=== PATIENT | female | born 1940 | race Caucasian/White ===

== ENCOUNTER → 2017-03-06 | Outpatient (CLI) | payer MEDICARE, OTHER | END | disposition home or self-care (01) | LOC: GMAB 14:43 | PROVIDERS: ATTEND Family Medicine | DX: E03.9 Hypothyroidism, unspecified (principal) ==

== ENCOUNTER → 2017-03-12 | Outpatient (CLI) | payer MEDICARE, OTHER ==
--- NOTE | 2017-03-13 08:45 | MAM ---
History: Well woman exam. Date of exam: 03/12/2017 Services provided: Bilateral full field digital screening mammography. CAD, the images were reviewed with R2 computer aided detection. FINDINGS: Glandular tissue is scattered glandular pattern. Study is compared with 2014 exam. No dominant mass, architectural distortion or clustered microcalcification. IMPRESSION: Benign exam Recommendation: Routine annual mammography BIRAD CATEGORY: 2 BENIGN Electronically signed by: Kathy Moscoso MD 03/13/2017 8:44 AM CDT
== END ==
LOC: MAMMO 08:31
PROVIDERS: ATTEND Family Medicine
DX: Z12.31 Encounter for screening mammogram for malignant neoplasm of breast (principal)

== ENCOUNTER 2017-09-20 18:31 | Emergency (ER) | payer MEDICARE, OTHER ==
[2017-09-20] MEDS ORDERED: ONDANSETRON INJ 4 MG/2 ML VIAL IV ONE (18:34)
[2017-09-20] MEDS ORDERED: SODIUM CHLORIDE 0.9% 1000ML 1,000 ML IVS ONE (18:34)
--- NOTE | 2017-09-20 19:06 | ED.PDOC ---
History of Present Illness - General Chief Complaint: GI Problem Stated Complaint: nausea and vomiting x 3 days Time Seen by Provider: 09/20/17 18:34 Information Source: patient, RN notes reviewed, Vital Signs reviewed, family Additional Information: Pt reports Nausea and vomiting x 3 days. No fever. No previous similar episodes reported. Normal colonoscopy 1 year ago per report. Emesis is clear. Poor appetite x 3 days as well. Pt nontoxic. - History of Present Illness Timing/Duration: days - x 3 Associated Symptoms: nausea/vomiting Review of Systems - Review of Systems Constitutional: States: no symptoms reported EENTM: States: no symptoms reported Respiratory: States: no symptoms reported Cardiology: States: no symptoms reported Gastrointestinal/Abdominal: States: see HPI, nausea Genitourinary: States: no symptoms reported Musculoskeletal: States: no symptoms reported Skin: States: no symptoms reported Neurological: States: no symptoms reported Endocrine: States: no symptoms reported Hematologic/Lymphatic: States: no symptoms reported Past Medical History (General) - Patient Medical History Hx Seizures: No Hx Stroke: No Hx Dementia: No Hx Asthma: No Hx of COPD: No Hx Cardiac Disorders: No Hx Congestive Heart Failure: Yes Hx Pacemaker: No Hx Hypertension: Yes Hx Thyroid Disease: No Hx Diabetes: Yes Hx Gastroesophageal Reflux: No Hx Renal Disease: No Hx Cancer: No Hx of HIV: No Hx Hepatitis C: No Hx MRSA: No - Vaccination History Hx Tetanus, Diphtheria Vaccination: No - Social History Hx Tobacco Use: No Hx Alcohol Use: No Hx Substance Use: No Hx Substance Use Treatment: No Hx Depression: No Hx Physical Abuse: No Hx Emotional Abuse: No Hx Suspected Abuse: No Family Medical History - Family History Mother Living Status: Hx Family Congestive Heart Failure: Yes - 89 Physical Exam - Physical Exam General Appearance: Alert, Comfortable, No apparent distress - at rest, Obese Eyes, Ears, Nose, Throat Exam: PERRL/EOMI, normal ENT inspection, pharynx normal Neck: non-tender, full range of motion, supple Respiratory: no respiratory distress, no accessory muscle use Cardiovascular/Chest: tachycardia - initially, but went down to normal after fluids Gastrointestinal/Abdominal: non tender, soft Back Exam: normal inspection Extremity: normal range of motion, non-tender Neurologic: driller brake lining II-XII nml as tested, no motor/sensory deficits, alert, normal mood/affect, oriented x 3 Skin Exam: normal color Lymphatic: no adenopathy Progress - Progress Progress: 09/20/17 21:02 Pt's symptoms improved with IV fluids and IV ZOfran. Labs reviewed and essentially normal. Pt ok to be discharged home with Rx for PO Zofran ODT and strict return precautions. Soft abdomen. Pt nontoxic. - Results/Orders Results/Orders: 09/20/17 20:49 URINALYSIS Stat Laboratory Results - last 24 hr 09/20/17 09/20/17 18:50 18:50 WBC 8.7 RBC 5.05 Hgb 14.0 Hct 41.5 MCV 82.2 MCH 27.7 MCHC 33.7 RDW 15.1 H Plt Count 153 MPV 7.2 L Absolute Neuts (auto) 6.40 Absolute Lymphs (auto) 1.60 Absolute Monos (auto) 0.60 Absolute Eos (auto) 0.10 Absolute Basos (auto) 0.00 Neutrophils % 74.5 Lymphocytes % 17.9 L Monocytes % 6.4 Eosinophils % 0.8 L Basophils % 0.4 Sodium 136 Potassium 3.6 Chloride 99 L Carbon Dioxide 25 Anion Gap 15.6 BUN 24 H Creatinine 0.92 BUN/Creatinine Ratio 26.1 H Random Glucose 164 H Serum Osmolality 279.6 Calcium 9.6 Total Bilirubin 0.8 AST 22 ALT 17 Alkaline Phosphatase 69 Serum Total Protein 8.7 H Albumin 5.0 Globulin 3.7 H Albumin/Globulin Ratio 1.4 Departure - Departure Clinical Impression: Nausea & vomiting Qualifiers: Vomiting type: unspecified Vomiting Intractability: intractable Qualified Code( s): R11.2 - Nausea with vomiting, unspecified Time of Disposition: 21:15 Disposition: Discharge to Home or Self Care Condition: Fair Departure Forms: ED Discharge - Pt. Copy, Patient Portal Self Enrollment Instructions: Nausea and Vomiting-Adult Referrals: Andres Quinonez MD [Primary Care Provider] - 1-2 Weeks Prescriptions: Ondansetron [Ondansetron Odt] 4 mg PO TID PRN #15 tab PRN Reason: Nausea Home Medications: Ambulatory Orders Lisinopril 20 mg PO DAILY 09/20/17 Meloxicam [Mobic] 7.5 mg PO Q8HR 09/20/17 Ondansetron [Ondansetron Odt] 4 mg PO TID PRN #15 tab 10/21/17 Additional Instructions: Stay well hydrated. [place] diet - toast and crackers for now. Return to ER if condition worsens. Follow-up with primary care provider if symptoms persist in 2 to 3 days.
[2017-09-20] MEDS ORDERED: ONDANSETRON ODT 8 MG TAB SL ONE (20:58)
[2017-09-20 21:16] VITALS: BP 160/71; TEMP 98.2; O2SAT 95
== END 2017-09-20 21:16 | disposition home or self-care (01) ==
LOC: ER 18:31
DX: R11.2 Nausea with vomiting, unspecified (principal); I11.0 Hypertensive heart disease with heart failure; I50.9 Heart failure, unspecified; E11.9 Type 2 diabetes mellitus without complications
CPT/HCPCS: 36415; 80053; 81001; 85025; 87086; J2405; J7030

== ENCOUNTER → 2018-04-08 | Outpatient (CLI) | payer MEDICARE, OTHER ==
--- NOTE | 2018-04-10 15:09 | MAM ---
EXAM DESCRIPTION: 3D Screening BILATERAL : Digital Mammography. CLINICAL HISTORY: 78 years Female ANNUAL SCREENING . No complaints. No family history of breast cancer. Postmenopausal. Has taken HRT less than 5 years ago. COMPARISON: 2-D digital screening bilateral study 03/12/2017. Report from prior examination also reviewed. TECHNIQUE: Bilateral CC and MLO projection full-field images, 3-D tomosynthesis digital mammographic technique. Also bilateral synthesized CC/ MLO full-field images. CAD not utilized. FINDINGS: The breast parenchymal density pattern is: Almost entirely fatty. No skin thickening or nipple retraction bilateral axillary lymph nodes. Bilateral solitary microcalcifications. No focal, stellate mass or density, focal asymmetry , and no suspicious microcalcifications bilaterally. Stable mammograms compared to prior study, taking into account differences in mammographic technique IMPRESSION: BI-RADS CATEGORY: 2 - BENIGN FINDINGS. FOLLOW UP: Routine digital bilateral screening, one year interval from March 2018. Written communication explaining the IMPRESSION and follow-up, will be mailed to the patient and referring health care provider. According to the [employer], yearly mammograms are recommended starting at age 40 and continuing as long as a woman is in good health. Any breast change noted on a breast self-exam should be reported promptly to the patient's healthcare provider. Breast MRI is recommended for women with an approximately 20-25% or greater lifetime risk of breast cancer, including women with a strong family history of breast or ovarian cancer and women who have been treated for Hodgkin's disease. A negative mammographic report should not delay tissue diagnosis in patients with significant clinical history or physical findings. Extremely dense breast tissue limits the sensitivity of digital mammography. Electronically signed by: Dereck Esposito MD 04/10/2018 3:08 PM CDT
== END ==
LOC: MAMMO 14:10
PROVIDERS: ATTEND Family Medicine
DX: Z12.31 Encounter for screening mammogram for malignant neoplasm of breast (principal)

== ENCOUNTER → 2018-04-09 | Outpatient (CLI) | payer MEDICARE, OTHER | LOC: GMAB 11:18 | PROVIDERS: ATTEND Family Medicine | DX: E03.9 Hypothyroidism, unspecified (principal) ==

== ENCOUNTER → 2019-04-29 | Outpatient (CLI) | payer MEDICARE, OTHER ==
--- NOTE | 2019-04-30 13:33 | MAM ---
EXAM DESCRIPTION: 3D Screening BILATERAL : Digital Mammography. CLINICAL HISTORY: 79 years Female SCREENING . No complaints. No personal or family history of breast cancer. Childbirth. Postmenopausal. HRT 5 or more years ago. Lifetime risk of developing breast cancer (Tyrer-Cuzick model)(%): 1.7. COMPARISON: Bilateral screening digital breast tomosynthesis 04/08/2018. TECHNIQUE: Bilateral CC and MLO projection full-field images, digital tomosynthesis mammographic technique Bilateral digital 2-D full-field MLO images. CAD not available for tomosynthesis or 2-D images. FINDINGS: The breast parenchymal density pattern is: Almost entirely fatty. No skin thickening or nipple retraction. No new focal, stellate mass or density, focal asymmetry , and no suspicious microcalcifications Stable mammograms compared to prior study. IMPRESSION: Negative findings. ASSESSMENT: BI-RADS CATEGORY: 1 - NEGATIVE. FOLLOW UP: Routine digital bilateral screening, one year interval from date Written communication explaining the findings and follow-up, will be mailed to the patient and referring health care provider. According to the [employer], yearly mammograms are recommended starting at age 40 and continuing as long as a woman is in good health. Any breast change noted on a breast self-exam should be reported promptly to the patient's healthcare provider. Breast MRI is recommended for women with an approximately 20-25% or greater lifetime risk of breast cancer, including women with a strong family history of breast or ovarian cancer and women who have been treated for Hodgkin's disease. A negative mammographic report should not delay tissue diagnosis in patients with significant clinical history or physical findings. Extremely dense breast tissue limits the sensitivity of digital mammography. Electronically signed by: Dereck Esposito MD 04/30/2019 1:31 PM CDT
== END ==
LOC: RAD 15:05
PROVIDERS: ATTEND Family Medicine
DX: Z12.31 Encounter for screening mammogram for malignant neoplasm of breast (principal)

== ENCOUNTER 2019-05-28 19:36 | Emergency (ER) | payer MEDICARE, OTHER ==
[2019-05-28] MEDS ORDERED: AMIODARONE HCL 150 MG/3 ML VIAL IVPB ONE (19:49)
[2019-05-28] MEDS ORDERED: AMIODARONE HCL 900 MG/18 ML VIAL IVPB ONE ×2 (19:52→19:54)
[2019-05-28] MEDS ORDERED: DEXTROSE 5% (AVIVA) 500ML 500 ML IVPB ONE ×2 (19:53→19:54)
[2019-05-28] MEDS ORDERED: MIDAZOLAM INJ 5 MG/5 ML VIAL ONE (19:59)
[2019-05-28] MEDS ORDERED: SODIUM CHLORIDE 0.9% 50ML 50 ML ONE (19:59)
[2019-05-28] MEDS ORDERED: MIDAZOLAM INJ 25 MG in SODIUM CHLORIDE 0.9% 50ML 25 ML IVPB SCH (20:00)
[2019-05-28] MEDS ORDERED: AMIODARONE IV (LOAD) 150 MG in DEXTROSE 5% 100ML 100 ML IVPB ONE (20:08)
[2019-05-28] MEDS ORDERED: MIDAZOLAM INJ 5 MG/5 ML VIAL IV ONE ×2 (20:12→21:09)
[2019-05-28] MEDS ORDERED: CALCIUM GLUCONATE INJ 1 GM/10 ML VIAL IV ONE (20:21)
[2019-05-28] MEDS ORDERED: INSULIN, REG.(HUMAN) 100 U/ML VIAL IV ONE (20:21)
[2019-05-28] MEDS ORDERED: INSULIN, REG.(HUMAN) 100 U/ML VIAL ONE (20:22)
[2019-05-28] MEDS ORDERED: SODIUM BICARBONATE SYRINGE 50 MEQ/50 ML SYG IV ONE (20:22)
[2019-05-28] MEDS ORDERED: DEXTROSE 50% 25 GM/50 ML SYG IV ONE (20:25)
[2019-05-28] MEDS ORDERED: AMIODARONE IV (MAINT) 900 MG in DEXTROSE 5% (AVIVA) 500ML 500 ML IVPB SCH (20:30)
--- NOTE | 2019-05-28 21:20 | RAD ---
EXAM DESCRIPTION: Chest x-ray,1 View CLINICAL HISTORY: post intubation COMPARISON: May 18, 2019 FINDINGS: Blunted right costophrenic angle and increased opacity in the right lower lung could represent a combination of pleural fluid and atelectasis. There is a NG tube which courses subdiaphragmatically. The side-port ends at the gastroesophageal junction level. There is an endotracheal tube ending at the sternoclavicular junction approximately 5.2 cm above the level of the svitlana. There is atherosclerosis. Cardiac silhouette is enlarged which could be secondary to cardiomegaly. There is blunting of the left costophrenic angle which could represent pleural fluid. IMPRESSION: Blunted costophrenic angles, right greater than left, could be secondary to pleural fluid. Increased opacity at the right lower lung may represent atelectasis. Life support devices as described. Electronically signed by: Giovanni Lenz MD 05/28/2019 9:17 PM CDT
--- NOTE | 2019-05-28 21:29 | ED.PDOC ---
History of Present Illness - General Chief Complaint: Cardiovascular Problem Stated Complaint: Irregular pulse Time Seen by Provider: 05/28/19 21:25 Source: RN/MD, EMS, shelter records Exam Limitations: clinical condition - History of Present Illness Initial Comments: PT BROUGHT TO ED BY EMS FROM [facility] DUE TO PERIODS OF BRADYCARDIA IN THE 20S-30S FOLLOWED BY RETURN TO SINUS TACHYCARDIA AT APPROXIMATELY 100. PT WAS ALSO NOTED TO HAVE ALTERED MENTAL STATUS. PT WAS RECENTLY DISCHARGED TO [facility] FROM [facility] AFTER UNDERGOING A CABG. PT REQUIRES MY IMMEDIATE ATTENTION UPON ARRIVAL. HPI AND ROS LIMITED DUE TO PTS ACUITY. Timing/Duration: 1-3 hours Severity: severe Allergies/Adverse Reactions: Allergies NO KNOWN ALLERGY Allergy (Verified 09/20/17 18:43) Home Medications: Ambulatory Orders Lisinopril 20 mg PO DAILY 09/20/17 Aspirin [Aspirin Adult Low Dose] 81 mg PO 05/18/19 Nitrofurantoin Monohyd Macro [Nitrofurantoin Monohydrat] 100 mg PO BID 05/18/19 metFORMIN HCL [Glucophage] 500 mg PO DAILY 05/18/19 Review of Systems - Review of Systems Constitutional: States: see HPI EENTM: States: see HPI Respiratory: States: see HPI Cardiology: States: see HPI Gastrointestinal/Abdominal: States: see HPI Genitourinary: States: see HPI Musculoskeletal: States: see HPI Skin: States: see HPI Neurological: States: see HPI Endocrine: States: see HPI Past Medical History (General) - Patient Medical History Hx Seizures: No Hx Stroke: No Hx Dementia: No Hx Asthma: No Hx of COPD: No Hx Cardiac Disorders: Yes - CAD S/P CABG Hx Congestive Heart Failure: Yes Hx Pacemaker: No Hx Hypertension: Yes Hx Thyroid Disease: No Hx Diabetes: Yes Hx Gastroesophageal Reflux: No Hx Renal Disease: No Hx Cancer: No Hx of HIV: No Hx Hepatitis C: No Hx MRSA: No Surgical History: coronary bypass surgery - Vaccination History Hx Tetanus, Diphtheria Vaccination: No Hx Influenza Vaccination: Yes Hx Pneumococcal Vaccination: Yes - Social History Hx Tobacco Use: No Hx Chewing Tobacco Use: No Hx Alcohol Use: No Hx Substance Use: No Hx Substance Use Treatment: No Hx Depression: No Hx Physical Abuse: No Hx Emotional Abuse: No Hx Suspected Abuse: No - Activities of Daily Living Long Term/Assisted Living (if applicable):: [facility] - Female History Patient : No Family Medical History - Family History Mother Living Status: Hx Family Congestive Heart Failure: Yes - 89 Hx Family Hypertension: Yes - multiple family members Hx Family Diabetes: Yes - dad,brother Physical Exam - Physical Exam General Appearance: Lethargic, Obvious distress, Ill Appearing, Obese, Well Groomed, Well Hydrated, Other - AGONAL RESPIRATIONS Eye Exam: bilateral normal Ears, Nose, Throat: normal ENT inspection Neck: supple, normal inspection Respiratory: lungs clear, normal breath sounds, respiratory distress Cardiovascular/Chest: no murmur, tachycardia, other - PARTIALLY HEALED MIDLINE STERNOTOMY WOUND Gastrointestinal/Abdominal: soft, no organomegaly, no pulsatile mass Extremity: other - MOTTLING NOTED TO B/L LE Neurologic: disoriented x 3 - UNABLE TO ANSWER QUESTIONS Skin Exam: warm/dry, cyanosis - FINGERS , mottled Lymphatic: no adenopathy Progress - Results/Orders Results/Orders: Laboratory Tests 05/28/19 05/28/19 05/28/19 20:15 20:15 20:30 WBC 1.1 L* RBC 2.93 L Hgb 8.5 L Hct 26.0 L MCV 88.8 MCH 29.1 MCHC 32.7 L RDW 16.0 H Plt Count 119 L MPV 7.6 Absolute Neuts (auto) 0.80 L Absolute Lymphs (auto) 0.30 L Absolute Monos (auto) 0.00 L Absolute Eos (auto) 0.00 Absolute Basos (auto) 0.00 Neutrophils % 69.3 Neutrophils % (Manual) 46.0 Lymphocytes % 26.6 Lymphocytes % (Manual) 23.0 Monocytes % 2.2 Monocytes % (Manual) 1.0 Eosinophils % 1.0 Basophils % 0.9 Band Neutrophils 26.0 H* Metamyelocytes 4.0 H Nucleated RBCs 7.0 Platelet Estimate Decreased Polychromasia 2+ Anisocytosis 2+ D-Dimer, Quantitative 5.39 H* Sodium 132 L Potassium 6.3 H Chloride 99 L Carbon Dioxide 21 Anion Gap 18.3 H BUN 21 H Creatinine 0.63 BUN/Creatinine Ratio 33.3 H Random Glucose 150 H Serum Osmolality 270.4 L Calcium 8.0 L Magnesium 2.2 Creatine Kinase 76 CK-MB (CK-2) 1.0 CK-MB (CK-2) % Not Reportable Troponin I 0.08 H* B-Natriuretic Peptide 1210.0 H* - EKG/XRAY/CT EKG: Sinus, Tachy - @105BPM, WITH PACS, LAD, RBBB, nonspecific ST T wave Chg - ANTERIOR SEPTAL LEAD, Unchanged from - 05/18/19 XRAY: chest - ET AND OG TUBE PLACEMENT SATISFACTORY, RLL OPACITY Procedures - Central Line Left Femoral vein Central Line Lumen: triple Central Line Procedure Prep: sterile drapes applied, sterile dressing applied Anesthesia: Lidocaine cc's of anesthesia: 5 Complications: 1 FAILED ATTEMPT IN THE LEFT IJ Central Line Post Position: sutured, good blood return - Intubation Time of Intubation: 15:45 Intubation Method: orotracheal Tube Size (cm): 7.5 Medications: Succinylcholine Breath Sounds after Intubation: equal Post Intubation Xray: Yes - SATISFACTORY ET AND OG TUBE PLACEMENT Departure - Departure Clinical Impression: Bradycardia, Hyperkalemia, Altered mental status, Acute respiratory failure, History of coronary artery bypass graft, Neutropenia, Bandemia, Cardiovascular disease, Tachycardia, Paroxysmal ventricular tachycardia Time of Disposition: 21:15 Disposition: Transfer to Hospital Condition: Poor Departure Forms: ED Discharge - Pt. Copy, Patient Portal Self Enrollment Referrals: QAMAR LINTON MD [Primary Care Provider] - 1-2 Weeks Home Medications: Ambulatory Orders Lisinopril 20 mg PO DAILY 09/20/17 Aspirin [Aspirin Adult Low Dose] 81 mg PO 05/18/19 Nitrofurantoin Monohyd Macro [Nitrofurantoin Monohydrat] 100 mg PO BID 05/18/19 metFORMIN HCL [Glucophage] 500 mg PO DAILY 05/18/19 Critical Care Note - Critical Care Note Total Time (mins): 50 Comments: CRITICAL EVENT: BRADYCARDIA, AMS, RESPIRATORY FAILURE CRITICAL FINDINGS: WBC 1.1, K 6.3, TROP 0.08, PAROXYSMAL VTAC CRITICAL ACTIONS: RSI, IV AMIODARONE, IV CALCIUM GLUCONATE, IV SODIUM BICARB, IV INSULIN, IV D50. Transfer to Outside Facility - Transfer Information Accepting Provider:: DR. MIRANDA Accepting Facility: [facility] Reason for Transfer: ICU
[2019-05-28] MEDS ORDERED: VECURONIUM BROMIDE 10 MG VIAL IV ONE (23:00)
[2019-05-28] MEDS ORDERED: ETOMIDATE INJECTION 2 MG/ML 20ML VIAL IV ONE (23:00)
[2019-05-29 03:18] VITALS: O2SAT 94
[2019-05-29 03:19] VITALS: BP 122/60; TEMP 100
== END 2019-05-28 21:25 | disposition short-term general hospital (02) ==
LOC: ER 19:36
DX: J96.00 Acute respiratory failure, unspecified whether with hypoxia or hypercapnia (principal); R00.1 Bradycardia, unspecified; R41.82 Altered mental status, unspecified; E87.5 Hyperkalemia; D70.9 Neutropenia, unspecified; D72.825 Bandemia; I47.2 Ventricular tachycardia; I25.10 Atherosclerotic heart disease of native coronary artery without angina pectoris; I50.9 Heart failure, unspecified; I11.0 Hypertensive heart disease with heart failure; E11.9 Type 2 diabetes mellitus without complications; Z79.82 Long term (current) use of aspirin; Z79.899 Other long term (current) drug therapy; Z95.1 Presence of aortocoronary bypass graft; Z79.84 Long term (current) use of oral hypoglycemic drugs
CPT/HCPCS: 31500; 36415; 36600; 71045; 80048; 82550; 82553; 82803; 82805; 83880; 84484; 85025; 85379; 85610; 85730; 93005; 94002; 94770; A4216; J0282; J2250; J7060; J7799

== ENCOUNTER 2019-06-09 15:18 | Emergency (ER) | payer MEDICARE, OTHER ==
--- NOTE | 2019-06-09 16:02 | ED.PDOC ---
History of Present Illness - General Chief Complaint: Respiratory Problem Time Seen by Provider: 06/09/19 15:52 Source: patient - History of Present Illness Initial Comments: PT SENT FROM [place] FOR LOW O2 SATS. JUST ARRIVED YESTERDAY. HAD CABG IN [place], 05/28. [place] STATES HAS REQUIRED VENTURI MASK ALL DAY LONG TO MAINTAIN SATS IN THE LOW 90'S. SHE IS VERY DIFFICULT TO GET HX FROM. Allergies/Adverse Reactions: Allergies NO KNOWN ALLERGY Allergy (Verified 09/20/17 18:43) Home Medications: Ambulatory Orders Lisinopril 20 mg PO DAILY 09/20/17 Aspirin [Aspirin Adult Low Dose] 81 mg PO 05/18/19 Nitrofurantoin Monohyd Macro [Nitrofurantoin Monohydrat] 100 mg PO BID 05/18/19 metFORMIN HCL [Glucophage] 500 mg PO DAILY 05/18/19 Review of Systems - Review of Systems Constitutional: Denies: chills, fever EENTM: States: no symptoms reported Respiratory: States: short of breath. Denies: cough Cardiology: Denies: chest pain Gastrointestinal/Abdominal: Denies: nausea, vomiting Musculoskeletal: States: no symptoms reported Skin: States: other - BRUISING TO CHEST WALL Neurological: States: no symptoms reported Endocrine: States: no symptoms reported Hematologic/Lymphatic: States: no symptoms reported Past Medical History (General) - Patient Medical History Hx Seizures: No Hx Stroke: No Hx Dementia: No Hx Asthma: No Hx of COPD: No Hx Cardiac Disorders: Yes - CAD S/P CABG Hx Congestive Heart Failure: Yes Hx Pacemaker: No Hx Hypertension: Yes Hx Thyroid Disease: No Hx Diabetes: Yes Hx Gastroesophageal Reflux: No Hx Renal Disease: No Hx Cancer: No Hx of HIV: No Hx Hepatitis C: No Hx MRSA: No - Vaccination History Hx Tetanus, Diphtheria Vaccination: No Hx Influenza Vaccination: Yes Hx Pneumococcal Vaccination: Yes - Social History Hx Tobacco Use: No Hx Chewing Tobacco Use: No Hx Alcohol Use: No Hx Substance Use: No Hx Substance Use Treatment: No Hx Depression: No Hx Physical Abuse: No Hx Emotional Abuse: No Hx Suspected Abuse: No - Female History Patient : No Family Medical History - Family History Mother Living Status: Hx Family Congestive Heart Failure: Yes - 89 Hx Family Hypertension: Yes - multiple family members Hx Family Diabetes: Yes - dad,brother Physical Exam - Physical Exam General Appearance: Alert, No apparent distress Eye Exam: bilateral normal Ears, Nose, Throat: normal ENT inspection, normal pharynx Neck: non-tender, full range of motion, supple Respiratory: other - ANU DIFFUSE RALES THROUGHOUT. NO WHEEZES, NO RHONCHI Cardiovascular/Chest: regular rate, rhythm, no murmur Gastrointestinal/Abdominal: normal bowel sounds, non tender, soft, no organomegaly Back Exam: normal inspection, no CVA tenderness Extremity: normal range of motion, non-tender, normal inspection, no pedal edema, no calf tenderness Neurologic: alert, normal mood/affect Skin Exam: other - MEDIAN STERNOTOMY INCISION IS HEALING WELL. DIFFUSE ECCHYMOSIS ANU LOWER CHEST WALL. NO ERYTHEMA, NO INDURATIONS. Lymphatic: no adenopathy Progress - Progress Progress: 06/09/19 17:27 D/W PT, IS OK WITH FURTHER TREATMENT IF NEEDED. 06/09/19 17:52 D/W CHUCK REDDING, HOSPITALIST, AND LUIS EDUARDO. ACCEPTS PT IN TRANSFER. DR. REDDING REQUESTS MERRUM. WILL GET BLOOD CULTURES PRIOR TO ABX ADMINISTRATION. PT UNDERSTANDS TREATMENT PLAN AND AGREES. 06/09/19 19:13 PT STABLE ON 3-4L PER N/C. SATS 94%. - EKG/XRAY/CT EKG: Sinus - NL AXIS, NL INTERVALS, , nonspecific ST T wave Chg - NAIP, NO CHANGE FROM 05/18/19 XRAY: chest - LLL INFILTRATE, R LOWER LOBE LOCULATED FLUID COLLECTION. Departure - Departure Clinical Impression: Loculated pleural effusion Pneumonia Qualifiers: Pneumonia type: due to unspecified organism Laterality: left Lung location: lower lobe of lung Qualified Code(s): J18.1 - Lobar pneumonia, unspecified or ganism CAD (coronary artery disease) Qualifiers: Coronary Disease-Associated Artery/Lesion type: [place] artery [place] vs. transplanted heart: [place] heart Associated angina: without angina Qualified Code(s): I25.10 - Atherosclerotic heart disease of [place] coronary artery without angina pectoris CHF (congestive heart failure) Qualifiers: Heart failure type: diastolic Heart failure chronicity: acute Qualified Code(s): I50.31 - Acute diastolic (congestive) heart failure Time of Disposition: 19:20 Disposition: Transfer to Hospital Condition: Fair Departure Forms: ED Discharge - Pt. Copy, Patient Portal Self Enrollment Referrals: QAMAR LINTON MD [Primary Care Provider] - 1-2 Weeks Home Medications: Ambulatory Orders Lisinopril 20 mg PO DAILY 09/20/17 Aspirin [Aspirin Adult Low Dose] 81 mg PO 05/18/19 Nitrofurantoin Monohyd Macro [Nitrofurantoin Monohydrat] 100 mg PO BID 05/18/19 metFORMIN HCL [Glucophage] 500 mg PO DAILY 05/18/19 Transfer to Outside Facility - Transfer Information Accepting Provider:: HOSPITALIST Accepting Facility: [facility] Reason for Transfer: required specialist not available
--- NOTE | 2019-06-09 16:17 | RAD ---
EXAM DESCRIPTION: Chest,1 View CLINICAL HISTORY: 79 years Female, HYPOXEMIA COMPARISON: Previous study May 28, 2019 TECHNIQUE: AP portable chest. FINDINGS: Heart size is large with prominent central pulmonary vascularity. Consolidation in the left lower lobe behind the heart with partial volume loss or infiltrate in the right lung base around partly loculated pleural fluid. Masslike density in the right mid and lower lung zone thought to be loculated pleural fluid in the major fissure. Correlate with chest CT findings. Calcified granuloma in the left upper lobe. No pneumothorax. Bones are unremarkable. IMPRESSION: Large cardiac silhouette AP cardiomegaly or pericardial effusion. Correlate with echocardiographic findings. Partial volume loss or infiltrate in the lung bases with partly loculated right pleural effusion. See above. Electronically signed by: Jesse Norris MD 06/09/2019 4:14 PM CDT
[2019-06-09] MEDS ORDERED: MEROPENEM 1 GM in SODIUM CHL 0.9% 50ML MIN-BAG+ 50 ML IVPB ONE (17:51)
[2019-06-09] MEDS ORDERED: SODIUM CHLORIDE 0.9% 50ML 50 ML ONE (18:15)
[2019-06-09] MEDS ORDERED: MEROPENEM 500 MG VIAL IVPB ONE (18:16)
[2019-06-09 19:26] VITALS: BP 116/52; TEMP 98.6; O2SAT 94
== END 2019-06-09 19:30 | disposition short-term general hospital (02) ==
LOC: ER 15:18
DX: J18.1 Lobar pneumonia, unspecified organism (principal); I25.10 Atherosclerotic heart disease of native coronary artery without angina pectoris; I50.31 Acute diastolic (congestive) heart failure; E11.9 Type 2 diabetes mellitus without complications; I11.0 Hypertensive heart disease with heart failure; Z95.1 Presence of aortocoronary bypass graft; Z79.84 Long term (current) use of oral hypoglycemic drugs; Z79.82 Long term (current) use of aspirin; Z79.899 Other long term (current) drug therapy
CPT/HCPCS: 36415; 71045; 80053; 83880; 84484; 85025; 85610; 85730; 87040; 93005; A4216; J2185

== ENCOUNTER 2019-08-24 12:11 | Emergency (ER) | payer MEDICARE, OTHER ==
--- NOTE | 2019-08-24 18:52 | ED.PDOC ---
History of Present Illness - General Chief Complaint: General Stated Complaint: left foot pain Time Seen by Provider: 08/24/19 13:26 - History of Present Illness Initial Comments: 79 yo F daughter 2 granddaughters great grandson and his girlfriend with son in law who happens to be a patient in department at bedside presents c/o LLE pain foot drop and color change turning 'black' x 1 day. Pt.PMH CABG tripple bypass with graft from LLE. Pt. denies fever chills nausea vomiting diarrhea chest pain sob diaphoresis. No change in diet rest bowel or bladder. Denies drinking or smoking pt of Dr. Lawler admits FH HTN DM. No other c/o today. Allergies/Adverse Reactions: Allergies NO KNOWN ALLERGY Allergy (Verified 09/20/17 18:43) Home Medications: Ambulatory Orders Lisinopril 20 mg PO DAILY 09/20/17 Aspirin [Aspirin Adult Low Dose] 81 mg PO 05/18/19 Nitrofurantoin Monohyd Macro [Nitrofurantoin Monohydrat] 100 mg PO BID 05/18/19 metFORMIN HCL [Glucophage] 500 mg PO DAILY 05/18/19 Review of Systems - Review of Systems Constitutional: States: no symptoms reported EENTM: States: no symptoms reported Respiratory: States: no symptoms reported Cardiology: States: no symptoms reported Gastrointestinal/Abdominal: States: no symptoms reported Genitourinary: States: no symptoms reported Musculoskeletal: States: no symptoms reported Neurological: States: no symptoms reported Endocrine: States: no symptoms reported Hematologic/Lymphatic: States: no symptoms reported All other Systems: Reviewed and Negative Past Medical History (General) - Patient Medical History Hx Seizures: No Hx Stroke: No Hx Dementia: No Hx Asthma: No Hx of COPD: No Hx Cardiac Disorders: Yes - CAD S/P CABG Hx Congestive Heart Failure: Yes Hx Pacemaker: No Hx Hypertension: Yes Hx Thyroid Disease: No Hx Diabetes: Yes Hx Gastroesophageal Reflux: No Hx Renal Disease: No Hx Cancer: No Hx of HIV: No Hx Hepatitis C: No Hx MRSA: No Surgical History: coronary bypass surgery, Hysterectomy - Vaccination History Hx Tetanus, Diphtheria Vaccination: No Hx Influenza Vaccination: Yes Hx Pneumococcal Vaccination: Yes - Social History Hx Tobacco Use: No Hx Chewing Tobacco Use: No Hx Alcohol Use: No Hx Substance Use: No Hx Substance Use Treatment: No Hx Depression: No Hx Physical Abuse: No Hx Emotional Abuse: No Hx Suspected Abuse: No - Female History Patient : No Family Medical History - Family History Mother Living Status: Hx Family Congestive Heart Failure: Yes - 89 Hx Family Hypertension: Yes - multiple family members Hx Family Diabetes: Yes - dad,brother Physical Exam - Physical Exam General Appearance: No apparent distress Eye Exam: bilateral normal Ears, Nose, Throat: normal ENT inspection Neck: non-tender, full range of motion Respiratory: normal breath sounds Cardiovascular/Chest: regular rate, rhythm Gastrointestinal/Abdominal: normal bowel sounds, non tender Back Exam: normal inspection Extremity: normal range of motion, non-tender Neurologic: other - L foot drop Skin Exam: other - ecchymosis and edema over left foot Comments: L foot swollen and edematous compared to right has ecchymosis and 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 felt at dorsalis pedis bilaterally but not as prominent as right foot when palpating over left forefoot Progress - Progress Progress: 08/24/19 18:51 Laboratory Tests 08/24/19 08/24/19 08/24/19 14:50 14:50 14:50 WBC 7.8 RBC 4.52 Hgb 12.7 Hct 38.3 MCV 84.7 MCH 28.1 MCHC 33.2 RDW 15.2 H Plt Count 155 MPV 7.6 Absolute Neuts (auto) 4.90 Absolute Lymphs (auto) 2.20 Absolute Monos (auto) 0.60 Absolute Eos (auto) 0.10 Absolute Basos (auto) 0.10 Neutrophils % 62.2 Lymphocytes % 28.9 Monocytes % 7.3 Eosinophils % 0.9 L Basophils % 0.7 Sodium 132 L Potassium 3.8 Chloride 94 L Carbon Dioxide 25 Anion Gap 16.8 BUN 23 H Creatinine 0.86 BUN/Creatinine Ratio 26.7 H Random Glucose 88 Serum Osmolality 267.6 L Lactic Acid 1.6 Calcium 9.5 Total Bilirubin 0.7 AST 16 ALT 11 Alkaline Phosphatase 53 Serum Total Protein 7.2 Albumin 3.9 Globulin 3.3 Albumin/Globulin Ratio 1.2 08/24/19 19:17 A/P-Foot Pain Left, Edema 1.iv cbc cmp transfer to [facility] for US and CTA with runoff and evaluation by vascular Spoke to Dr. Bassett of Vascular Surgery who agrees with plan and wishes patient to be sent ER to ER Dr. Lenny Mcguire accepts 1911 Departure - Departure Clinical Impression: Foot pain, left, H/O vascular surgery Edema Qualifiers: Edema type: localized Qualified Code(s): R60.0 - Localized edema Time of Disposition: 19:20 Disposition: Transfer to Hospital Condition: Fair Departure Forms: ED Discharge - Pt. Copy, Patient Portal Self Enrollment Referrals: QAMAR LAWLER MD [Primary Care Provider] - 1-2 Weeks Home Medications: Ambulatory Orders Lisinopril 20 mg PO DAILY 09/20/17 Aspirin [Aspirin Adult Low Dose] 81 mg PO 05/18/19 Nitrofurantoin Monohyd Macro [Nitrofurantoin Monohydrat] 100 mg PO BID 05/18/19 metFORMIN HCL [Glucophage] 500 mg PO DAILY 05/18/19 Transfer to Outside Facility - Transfer Information Accepting Provider:: Dr. Mcguire 1911 Accepting Facility: [facility] Reason for Transfer: specialized care not available
[2019-08-24 19:29] VITALS: TEMP 98.7
[2019-08-24 20:09] VITALS: BP 160/87; O2SAT 95
== END 2019-08-24 20:45 | disposition short-term general hospital (02) ==
LOC: ER 12:11
DX: S90.32XA Contusion of left foot, initial encounter (principal); R60.0 Localized edema; M21.372 Foot drop, left foot; I25.10 Atherosclerotic heart disease of native coronary artery without angina pectoris; I50.9 Heart failure, unspecified; I11.0 Hypertensive heart disease with heart failure; E11.9 Type 2 diabetes mellitus without complications; Z98.890 Other specified postprocedural states; Z95.1 Presence of aortocoronary bypass graft; Z79.84 Long term (current) use of oral hypoglycemic drugs; Z79.82 Long term (current) use of aspirin; Z79.899 Other long term (current) drug therapy; X58.XXXA Exposure to other specified factors, initial encounter; Y92.9 Unspecified place or not applicable

== ENCOUNTER 2019-09-08 17:36 | Inpatient (IN) | payer MEDICARE, OTHER ==
--- NOTE | 2019-09-08 19:03 | CT ---
EXAM: CT Left Lower Extremity Without Intravenous Contrast CLINICAL HISTORY: ct foot for dorsal and lateral erythema, pain TECHNIQUE: Axial computed tomography images of the left lower extremity without intravenous contrast. Sagittal and coronal reformatted images were created and reviewed. This CT exam was performed using one or more of the following dose reduction techniques: automated exposure control, adjustment of the mA and/or kV according to patient size, and/or use of iterative reconstruction technique. COMPARISON: No relevant prior studies available. FINDINGS: Limitations: None. Bones/joints: Unremarkable. No acute fracture. No dislocation. Soft tissues: Edema present diffusely most notable dorsally and laterally. There is no organized/drainable collection. No soft tissue gas. IMPRESSION: There is soft tissue swelling without acute bony abnormality. Electronically signed by: Shalini Montenegro MD 09/08/2019 7:01 PM CDT
[2019-09-08] MEDS ORDERED: VANCOMYCIN HCL INJ 1,000 MG, VANCOMYCIN HCL INJ 250 MG in SODIUM CHLORIDE 0.9% 250ML 25... IVPB ONE (19:15)
[2019-09-08] MEDS ORDERED: VANCOMYCIN HCL INJ 500 MG VIAL ONE (19:17)
[2019-09-08] MEDS ORDERED: VANCOMYCIN HCL INJ 1,000 MG VIAL IVPB ONE (19:17)
[2019-09-08] MEDS ORDERED: SODIUM CHLORIDE 0.9% 250ML 250 ML ONE (19:18)
[2019-09-08] MEDS ORDERED: SODIUM CHLORIDE 0.9% 1000ML 500 ML IVS ONE (19:19)
--- NOTE | 2019-09-08 19:27 | ED.PDOC ---
History of Present Illness - General Chief Complaint: Lower Extremity Injury Stated Complaint: left foot discoloration, swelling Time Seen by Provider: 09/08/19 17:53 Source: patient, family Exam Limitations: no limitations - History of Present Illness Initial Comments: the patient is an 79-year-old female presenting to the emergency room after being sent over from the clinic by Dr. Quinonez. The patient has what appears to be a cellulitis of the dorsal aspect of the left foot that has been present for approximately 3 weeks. She has apparently completed almost 2 weeks of Bactrim and Keflex without complete resolution. No fever. No erythema extending up the leg. No known trauma. There is obvious swelling and some erythema. There is also what appears to be a little bit of bruising around the edges. No IV has been put at the site. The patient also has a wound VAC to the center of the chest where her wound dehisced from a CABG back in May. This was just changed out today and the site actually looks good. No fever. No evidence of sepsis. The patient is pleasant and cooperative. the patient actually went to [facility] a short time ago for this and had a vascular ultrasound done showing decent perfusion. She does have a palpable dorsalis pedis pulse in that distribution. Timing/Duration: other - almost 3 weeks Severity: moderate Improving Factors: nothing Worsening Factors: movement Associated Symptoms: denies symptoms Allergies/Adverse Reactions: Allergies NO KNOWN ALLERGY Allergy (Verified 09/20/17 18:43) Home Medications: Ambulatory Orders Lisinopril 20 mg PO DAILY 09/20/17 Aspirin [Aspirin Adult Low Dose] 81 mg PO 05/18/19 Nitrofurantoin Monohyd Macro [Nitrofurantoin Monohydrat] 100 mg PO BID 05/18/19 metFORMIN HCL [Glucophage] 500 mg PO DAILY 05/18/19 Review of Systems - Review of Systems Constitutional: States: no symptoms reported EENTM: States: no symptoms reported Respiratory: States: no symptoms reported Cardiology: States: no symptoms reported Gastrointestinal/Abdominal: States: no symptoms reported Genitourinary: States: no symptoms reported Musculoskeletal: States: see HPI Skin: States: see HPI Neurological: States: no symptoms reported Endocrine: States: no symptoms reported All other Systems: No Change from Baseline Past Medical History (General) - Patient Medical History Hx Seizures: No Hx Stroke: No Hx Dementia: No Hx Asthma: No Hx of COPD: No Hx Cardiac Disorders: Yes - CAD S/P CABG Hx Congestive Heart Failure: Yes Hx Pacemaker: No Hx Hypertension: Yes Hx Thyroid Disease: No Hx Diabetes: Yes Hx Gastroesophageal Reflux: No Hx Renal Disease: No Hx Cancer: No Hx of HIV: No Hx Hepatitis C: No Hx MRSA: No - Vaccination History Hx Tetanus, Diphtheria Vaccination: No Hx Influenza Vaccination: Yes Hx Pneumococcal Vaccination: Yes - Social History Hx Tobacco Use: No Hx Chewing Tobacco Use: No Hx Alcohol Use: No Hx Substance Use: No Hx Substance Use Treatment: No Hx Depression: No Hx Physical Abuse: No Hx Emotional Abuse: No Hx Suspected Abuse: No - Female History Patient : No Family Medical History - Family History Mother Living Status: Hx Family Congestive Heart Failure: Yes - 89 Hx Family Hypertension: Yes - multiple family members Hx Family Diabetes: Yes - dad,brother Physical Exam - Physical Exam General Appearance: Alert, Comfortable, No apparent distress Eye Exam: bilateral normal Ears, Nose, Throat: hearing grossly normal, normal pharynx Neck: non-tender, supple Respiratory: lungs clear, normal breath sounds, no respiratory distress, no accessory muscle use Cardiovascular/Chest: normal peripheral pulses, no edema, other - regular rate. wound VAC site appears appropriate and without obvious infection. Peripheral Pulses: radial,right: 2+, radial,left: 2+, dorsalis pedis,right: 1+, dorsalis pedis,left: 1+ Gastrointestinal/Abdominal: non tender, soft Rectal Exam: deferred Extremity: normal range of motion, no calf tenderness, normal capillary refill, other - she does have tenderness over the dorsal aspect where the erythema and swelling is. No definite bony crepitus. 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 One pass was made without any success. Estimated blood loss was none. Assessment and plan: The patient is an 79-year-old female presenting to the emergency room from the primary care clinic due to cellulitis of the left foot that has failed to resolve with Bactrim and Keflex. Laboratory work and CT scan are reassuring. Given the resistance to the current antibiotics the patient is going to be started on vancomycin here tonight. She'll be placed under observation to make sure she tolerates this well. This can be continued as an outpatient with home health and followed with home health. The patient is in good spirits and vital signs are stable. Admitted for observation. A blood culture was done today. - Results/Orders Results/Orders: CT scan of the left foot shows no evidence of osteomyelitis. It does show the swelling to the dorsal aspect. No obvious fracture. Laboratory Tests 09/08/19 09/08/19 09/08/19 18:05 18:05 18:05 WBC 7.8 RBC 4.48 Hgb 12.8 Hct 38.3 MCV 85.6 MCH 28.6 MCHC 33.4 RDW 16.1 H Plt Count 173 MPV 7.3 L Absolute Neuts (auto) 5.20 Absolute Lymphs (auto) 2.00 Absolute Monos (auto) 0.50 Absolute Eos (auto) 0.10 Absolute Basos (auto) 0.00 Neutrophils % 66.9 Lymphocytes % 26.0 Monocytes % 5.9 Eosinophils % 0.7 L Basophils % 0.5 PT 9.8 INR 0.98 PTT (SP) 24.9 Sodium 133 L Potassium 4.6 Chloride 98 L Carbon Dioxide 20 L Anion Gap 19.6 H BUN 36 H Creatinine 1.12 BUN/Creatinine Ratio 32.1 H Random Glucose 113 H Serum Osmolality 275.5 Uric Acid Calcium 9.4 Total Bilirubin 0.4 AST 22 ALT 20 Alkaline Phosphatase 61 C-Reactive Protein Serum Total Protein 7.8 Albumin 4.1 Globulin 3.7 H Albumin/Globulin Ratio 1.1 09/08/19 18:05 WBC RBC Hgb Hct MCV MCH MCHC RDW Plt Count MPV Absolute Neuts (auto) Absolute Lymphs (auto) Absolute Monos (auto) Absolute Eos (auto) Absolute Basos (auto) Neutrophils % Lymphocytes % Monocytes % Eosinophils % Basophils % PT INR PTT (SP) Sodium Potassium Chloride Carbon Dioxide Anion Gap BUN Creatinine BUN/Creatinine Ratio Random Glucose Serum Osmolality Uric Acid 6.1 Calcium Total Bilirubin AST ALT Alkaline Phosphatase C-Reactive Protein 1.0 Serum Total Protein Albumin Globulin Albumin/Globulin Ratio Departure - Departure Clinical Impression: Cellulitis of foot without toes Disposition: Admit Patient Departure Forms: ED Discharge - Pt. Copy, Patient Portal Self Enrollment Referrals: QAMAR LINTON MD [Primary Care Provider] - 1-2 Weeks Home Medications: Ambulatory Orders Lisinopril 20 mg PO DAILY 09/20/17 Aspirin [Aspirin Adult Low Dose] 81 mg PO 05/18/19 Nitrofurantoin Monohyd Macro [Nitrofurantoin Monohydrat] 100 mg PO BID 05/18/19 metFORMIN HCL [Glucophage] 500 mg PO DAILY 05/18/19 Decision To Admit - Decistion To Admit Decision to Admit Reason: Medical Nature Decision to Admit Date: 09/08/19 Decision to Admit Time: 19:31
--- NOTE | 2019-09-08 22:10 | HP ---
SUPERVISING PHYSICIAN: Tom Davis MD CHIEF COMPLAINT: Left foot swelling. HISTORY OF PRESENT ILLNESS: This is an 79-year-old female who came in the Emergency Room with left foot swelling and erythema. She went to see her primary care physician who noted that she had some increased swelling and redness to the foot. Apparently she had a coronary artery bypass graft at [facility] several months ago. Since that time, she has had intermittent swelling of the foot, however, the swelling did not have discoloration until August 22. She ended up going to [facility] and was sent to the Emergency Room at [facility]. She was placed in the CDU there where her surgeon, Dr. Bassett, was contacted. She ended up having a Doppler which did not show any blood clots, but did incidentally find a left inguinal pseudoaneurysm. She was placed on antibiotics by mouth which included Bactrim. She finished those antibiotics a couple of days ago and was seen by her primary care physician who noted that the redness and swelling really has not gotten any better. Additionally, she has had a dehiscence of her sternal wound that required a wound VAC. On examination today, the patient is alert and oriented. Her labs are unremarkable. She does not complain of any significant pain at this time. PAST MEDICAL HISTORY: 1. Hypertension. 2. Diabetes mellitus. 3. Congestive heart failure. 4. Urinary tract infections. 5. Hard of hearing. PAST SURGICAL HISTORY: 1. Percutaneous transluminal coronary angioplasties. 2. Cardiac catheterizations. 3. Coronary artery bypass graft. 4. Cholecystectomy. 5. Hysterectomy. MEDICATIONS: 1. Aspirin 81 mg daily. 2. Amlodipine 5 mg daily. 3. Citalopram 20 mg daily. 4. Hydrochlorothiazide 12.5 mg daily. 5. Lisinopril 20 mg daily. 6. Metformin 500 mg every morning. 7. Metoprolol 25 mg b.i.d. 8. Atorvastatin 40 mg at bedtime. 9. Plavix 75 mg at bedtime. 10. Tylenol 325 mg every 6 hours as needed. ALLERGIES: NO KNOWN DRUG ALLERGIES. FAMILY HISTORY: Family history is reviewed and she does have a family history of hypertension and heart disease. SOCIAL HISTORY: She has a really distant history of smoking. No alcohol, no illicit drugs. REVIEW OF SYSTEMS: CONSTITUTIONAL: No fever or chills. No recent weight loss or weight gain. HEENT: No headaches, vision changes, ear pain, nasal congestion or throat pain. RESPIRATORY: No cough, hemoptysis or pleuritic chest pain. CARDIOVASCULAR: No chest pain, palpitations. She does have peripheral edema, mainly in the left foot. GASTROINTESTINAL: No nausea, vomiting, diarrhea, constipation or abdominal pain. GENITOURINARY: No dysuria, frequency or flank pain. HEMATOLOGIC: Positive for easy bruising, but no transfusion reaction. MUSCULOSKELETAL: No muscle cramps, joint pain or joint swelling. SKIN: She has a sternal wound which is hooked up to a wound VAC and she has the cellulitis to the foot. No other rashes or lesions noted. ENDOCRINE: No polydipsia, polyuria or polyphagia. No heat or cold intolerance. NEUROLOGIC: No syncope, paresthesias or seizures. PHYSICAL EXAMINATION: VITAL SIGNS: Blood pressure 133/93. Heart rate 56. Respiratory rate 22. Temperature 97.1. Oxygen saturation 97%. GENERAL: Ms. Berman is an 79-year-old female in no active distress currently. NEUROLOGIC: The patient is alert and oriented. LUNGS: Clear to auscultation bilaterally. CARDIOVASCULAR: Regular rate and rhythm. Normal S1, S2. CHEST: There is an approximated sternal wound for the most part, but at the bottom of the sternal wound there was dehiscence that is now dressed with a wound VAC dressing hooked up to a wound VAC. ABDOMEN: Soft. Positive bowel sounds. No tenderness to palpation. GENITOURINARY: Deferred. EXTREMITIES: Lower extremities with no significant edema on the right. On the left, she does have edema of that foot with discoloration and erythema, warmth to the touch. Pulses 2+. Capillary refill is less than 2 seconds. LABORATORY: Normal white count, negative hemoglobin. Coag studies were normal. Chemistry shows sodium 133, potassium 4.6, chloride 98, CO2 20, BUN 36, creatinine 1.12, glucose 113, calcium 9.4. C-reactive protein 1.0, uric acid 6.1. She did have a CT scan as well of the lower extremity to ensure there was no osteomyelitis. There was soft tissue swelling without any acute bony abnormality. ASSESSMENT: 1. Left foot cellulitis which has failed outpatient therapy. 2. Hypertension. 3. Diabetes mellitus, type 2. 4. History of coronary artery disease status post coronary artery bypass graft in May of 2019. 5. History of sternal wound dehiscence with application of a wound VAC. PLAN: At this time, we will admit the patient to the Floor due to the failed outpatient therapy. I will place her on IV antibiotics including vancomycin. I will put her on DVT and GI ulcer prophylaxis as well. Her BUN was a little elevated in the Emergency Room, so she has gotten some IV fluids. We will be cautious with fluids due to her history of congestive heart failure although I do not know her ejection fraction. We will resume her home medications once they are verified in the computer as well. #[id number] [facility]
[2019-09-08] MEDS ORDERED: ACETAMINOPHEN 325 MG TAB PO PRN (22:20)
[2019-09-08] MEDS ORDERED: LACTATED RINGERS 1,000 ML IVS PRN (22:20)
[2019-09-08] MEDS ORDERED: GLUCAGON INJ 1 MG VIAL SUBCU PRN (22:20)
[2019-09-08] MEDS ORDERED: DEXTROSE 50% 25 GM/50 ML SYG IV PRN (22:20)
[2019-09-08] MEDS ORDERED: SODIUM CHLORIDE 0.9% (FLUSH) 10 ML SYG IV PRN (22:20)
[2019-09-08] MEDS ORDERED: ENOXAPARIN SODIUM 40 MG/0.4 ML SYG SUBCU SCH (22:30)
[2019-09-08] MEDS ORDERED: VANCOMYCIN PER PHARMACY IVPB SCH (22:30)
[2019-09-08] MEDS: METOPROLOL TARTRATE 25 MG TAB PO SCH (22:43)
[2019-09-08] MEDS: IV SET AND CAP CHANGE INJ INJ SCH (22:50)
[2019-09-09] MEDS ORDERED: OMEPRAZOLE CAP 20 MG CAP PO SCH (06:30)
[2019-09-09] MEDS: INSULIN LISPRO 100 UNITS/ML PEN SUBCU SCH ×4 (08:54→21:02)
[2019-09-09] MEDS: CITALOPRAM HBR 20 MG TAB PO SCH (09:16)
[2019-09-09] MEDS: metFORMIN HCL 500 MG TAB PO SCH (09:16)
[2019-09-09] MEDS: amLODIPine BESYLATE 5 MG TAB PO SCH (09:16)
[2019-09-09] MEDS: METOPROLOL TARTRATE 25 MG TAB PO SCH ×2 (09:16→20:07)
[2019-09-09] MEDS: ASPIRIN (ENTERIC COATED) 81 MG TAB PO SCH (09:16)
[2019-09-09] MEDS: hydroCHLOROthiazide 12.5 MG CAP PO SCH (09:16)
[2019-09-09] MEDS: CLOPIDOGREL 75 MG TAB PO SCH (09:16)
[2019-09-09] MEDS: LISINOPRIL 10 MG TAB PO SCH (09:16)
[2019-09-09] MEDS ORDERED: VANCOMYCIN HCL INJ 1,000 MG VIAL IVPB ONE (18:12)
[2019-09-09] MEDS ORDERED: SODIUM CHLORIDE 0.9% 250ML 250 ML ONE (18:12)
[2019-09-09] MEDS: VANCOMYCIN HCL INJ 1,000 MG in SODIUM CHLORIDE 0.9% 250ML 250 ML IVPB SCH (18:16)
--- NOTE | 2019-09-09 18:22 | PN ---
DATE: 09/09/19 SUPERVISING PHYSICIAN: Tom Davis M.D. SUBJECTIVE: The patient notes that her foot is looking better. Looking at the markings from admission, the area that is in question is decreasing in redness. It is still swollen. She has been afebrile. She has had no other complaints. OBJECTIVE: VITAL SIGNS: Temperature 98, pulse 55, blood pressure 123/74, respirations 18, satting 94% on room air. GENERAL: The patient is resting comfortably. Appears to be in no acute distress. CHEST: Clear to auscultation. HEART: Regular rate and rhythm. ABDOMEN: Soft, non-tender. Positive bowel sounds. EXTREMITIES: Left foot shows an area of brown to reddish discoloration with cellulitis and some erythema localized on top of the foot. No areas of consolidation or drainage. Areas of the foot that are marked on admission show that the cellulitis has decreased. SKIN: As noted on musculoskeletal for the foot, the sternal wound shows a wound VAC in place. NEUROLOGIC: She is alert and oriented times three. LABORATORY: CBC yesterday showed normal limits at 7,800 on white count with an ESR of 27. Chemistries today show normal electrolytes with BUN 32, creatinine 1 and calcium 9.2. RADIOLOGY: No additional radiographic studies. ASSESSMENT: 1. Left foot cellulitis having failed to respond to outpatient treatment and antibiotic therapy with 2 separate antibiotics. 2. Hypertension. 3. Diabetes mellitus, type 2. 4. History of coronary artery disease status post coronary artery bypass graft in May of 2019. 5. History of sternal wound dehiscence with application of a wound VAC. PLAN: The patient is showing good response to antibiotic therapist right now currently with vancomycin. I did discuss the patient's case with Dr. Agarwal. She recommended that we continue with vancomycin and if possible maybe get a culture of the sternal area to ensure that there is not any Pseudomonas. Will plan to do the culture tomorrow with wound VAC change. I would anticipate at least another 48 hours of parenteral antibiotics and hopefully be able to transition her to oral medications at that time. She may need to continue with vancomycin but will reassess and make that decision on discharge. Will continue with her home medications and keep the leg elevated. Until we can transition her to outpatient management will continue to treat as needed. #[id number] [facility]
[2019-09-09] MEDS ORDERED: PANTOPRAZOLE SODIUM TAB 40 MG PO ONE (19:06)
[2019-09-09] MEDS: ATORVASTATIN 20 MG TAB PO SCH (20:07)
[2019-09-09] MEDS: ENOXAPARIN SODIUM 40 MG/0.4 ML SYG SUBCU SCH (20:08)
[2019-09-10] MEDS: PANTOPRAZOLE SODIUM TAB 40 MG PO SCH (06:17)
[2019-09-10] MEDS: INSULIN LISPRO 100 UNITS/ML PEN SUBCU SCH ×4 (08:12→21:23)
[2019-09-10] MEDS: amLODIPine BESYLATE 5 MG TAB PO SCH (08:12)
[2019-09-10] MEDS: CLOPIDOGREL 75 MG TAB PO SCH (08:13)
[2019-09-10] MEDS: LISINOPRIL 10 MG TAB PO SCH (08:13)
[2019-09-10] MEDS: CITALOPRAM HBR 20 MG TAB PO SCH (08:13)
[2019-09-10] MEDS: METOPROLOL TARTRATE 25 MG TAB PO SCH ×2 (08:13→20:20)
[2019-09-10] MEDS: hydroCHLOROthiazide 12.5 MG CAP PO SCH (08:13)
[2019-09-10] MEDS: metFORMIN HCL 500 MG TAB PO SCH (08:13)
[2019-09-10] MEDS: ASPIRIN (ENTERIC COATED) 81 MG TAB PO SCH (08:13)
--- NOTE | 2019-09-10 13:12 | PN ---
SUPERVISING PHYSICIAN: Tom Davis M.D. DATE: 09/10/19 SUBJECTIVE: The patient continues to show some good progress with parenteral antibiotics. She has been afebrile. She has no other complaints. OBJECTIVE: VITAL SIGNS: Temperature 98.1, pulse 61, blood pressure 140/68, respirations 16, satting 98% on room air. GENERAL: The patient is resting comfortably with the leg elevated. CHEST: Clear to auscultation. HEART: Regular rate and rhythm. ABDOMEN: Soft, nontender. Positive bowel sounds. EXTREMITIES: Left foot shows an area of erythema on the dorsal aspect which is more discoloration with ecchymosis. There is very little erythema extending passed the area of swelling and no areas of consolidation or fluctuation noted. SKIN: As noted above with wound VAC in place on the sternal wound. NEUROLOGIC: She is alert and oriented times three. LABORATORY: No new labs. RADIOLOGY: No new radiographic studies. ASSESSMENT: 1. Left foot cellulitis having failed to respond to outpatient treatment and antibiotic therapy with 2 separate antibiotics. 2. Hypertension. 3. Diabetes mellitus, type 2. 4. History of coronary artery disease status post coronary artery bypass graft in May of 2019. 5. History of sternal wound with dehiscence with application of a wound VAC with cultures pending. PLAN: We will continue with IV antibiotics including vancomycin for treatment of the left foot. We did culture the wound from the sternal area with changing wound VAC. Dr. Agarwal recommended we continue with vancomycin at this point and await culture results from the sternal wound. We will continue to monitor and treat as needed and hopefully be able to discharge this Friday or Friday if she is showing good response to parenteral antibiotic and hopefully will be able to transition to outpatient management on oral antibiotics. Until that time, we will continue to monitor and treat as needed. [facility][id number] [facility]
[2019-09-10] MEDS ORDERED: SODIUM CHLORIDE 0.9% 250ML 250 ML ONE (14:02)
[2019-09-10] MEDS ORDERED: VANCOMYCIN HCL INJ 1,000 MG VIAL IVPB ONE (14:03)
[2019-09-10] MEDS: VANCOMYCIN HCL INJ 1,000 MG in SODIUM CHLORIDE 0.9% 250ML 250 ML IVPB SCH (18:11)
[2019-09-10] MEDS: ATORVASTATIN 20 MG TAB PO SCH (20:20)
[2019-09-10] MEDS: ENOXAPARIN SODIUM 40 MG/0.4 ML SYG SUBCU SCH (20:21)
[2019-09-11] MEDS: PANTOPRAZOLE SODIUM TAB 40 MG PO SCH (06:03)
[2019-09-11] MEDS: ASPIRIN (ENTERIC COATED) 81 MG TAB PO SCH (09:16)
[2019-09-11] MEDS: CLOPIDOGREL 75 MG TAB PO SCH (09:16)
[2019-09-11] MEDS: amLODIPine BESYLATE 5 MG TAB PO SCH (09:16)
[2019-09-11] MEDS: LISINOPRIL 10 MG TAB PO SCH (09:16)
[2019-09-11] MEDS: hydroCHLOROthiazide 12.5 MG CAP PO SCH (09:16)
[2019-09-11] MEDS: CITALOPRAM HBR 20 MG TAB PO SCH (09:16)
[2019-09-11] MEDS: INSULIN LISPRO 100 UNITS/ML PEN SUBCU SCH ×4 (09:17→21:25)
[2019-09-11] MEDS: METOPROLOL TARTRATE 25 MG TAB PO SCH ×2 (09:18→20:28)
[2019-09-11] MEDS: metFORMIN HCL 500 MG TAB PO SCH (09:25)
--- NOTE | 2019-09-11 14:19 | PN ---
DATE: 09/11/19 SUPERVISING PHYSICIAN: Tom Davis M.D. SUBJECTIVE: The patient continues to do well. She has not had any problems with the antibiotics. She has had no other complaints. OBJECTIVE: VITAL SIGNS: Temperature 98.5, pulse 62, blood pressure 123/64, respirations 16, satting 97% on room air. CHEST: Clear to auscultation. HEART: Regular rate and rhythm. ABDOMEN: Soft, non-tender. Positive bowel sounds. EXTREMITIES: Left lower extremity continues to show erythema on the dorsal aspect of the foot with some ecchymosis noted. There is no obvious area of consolidation. No significant erythema. NEUROLOGIC: She is alert and oriented times three. LABORATORY: No additional laboratory studies other than blood sugars have been staying between 85 and 115. ASSESSMENT: 1. Left foot cellulitis having failed to respond to outpatient treatment and antibiotic therapy with 2 separate antibiotics. 2. Hypertension. 3. Diabetes mellitus, type 2. 4. History of coronary artery disease status post coronary artery bypass graft in May of 2019. 5. History of sternal wound with dehiscence with application of a wound VAC with cultures pending. PLAN: Will continue with antibiotic coverage at this point with vancomycin with the intentions of probably discharging the patient on Friday as by Friday she will have 72 hours of parenteral antibiotics and is still showing good improvement. The plan would be transition her to doxycycline. Will await culture results from the sternotomy incision culture. Until we can transition her to outpatient management will continue to monitor and treat as needed. #[id number] [facility]
[2019-09-11] MEDS ORDERED: SODIUM CHLORIDE 0.9% 250ML 250 ML ONE (18:04)
[2019-09-11] MEDS ORDERED: VANCOMYCIN HCL INJ 500 MG VIAL ONE (18:04)
[2019-09-11] MEDS ORDERED: VANCOMYCIN HCL INJ 1,000 MG VIAL IVPB ONE (18:05)
[2019-09-11] MEDS: VANCOMYCIN HCL INJ 1,000 MG, VANCOMYCIN HCL INJ 250 MG in SODIUM CHLORIDE 0.9% 250ML 25... IVPB SCH (18:18)
[2019-09-11] MEDS: ENOXAPARIN SODIUM 40 MG/0.4 ML SYG SUBCU SCH (20:28)
[2019-09-11] MEDS: ATORVASTATIN 20 MG TAB PO SCH (20:28)
[2019-09-11] MEDS: IV SET AND CAP CHANGE INJ INJ SCH (23:37)
[2019-09-12] MEDS: PANTOPRAZOLE SODIUM TAB 40 MG PO SCH (06:05)
[2019-09-12] MEDS: INSULIN LISPRO 100 UNITS/ML PEN SUBCU SCH ×4 (07:24→21:02)
[2019-09-12] MEDS: metFORMIN HCL 500 MG TAB PO SCH (07:28)
[2019-09-12] MEDS: METOPROLOL TARTRATE 25 MG TAB PO SCH ×2 (09:09→20:39)
[2019-09-12] MEDS: LISINOPRIL 10 MG TAB PO SCH (09:09)
[2019-09-12] MEDS: hydroCHLOROthiazide 12.5 MG CAP PO SCH (09:09)
[2019-09-12] MEDS: amLODIPine BESYLATE 5 MG TAB PO SCH (09:10)
[2019-09-12] MEDS: CITALOPRAM HBR 20 MG TAB PO SCH (09:10)
[2019-09-12] MEDS: ASPIRIN (ENTERIC COATED) 81 MG TAB PO SCH (09:10)
[2019-09-12] MEDS: CLOPIDOGREL 75 MG TAB PO SCH (09:10)
[2019-09-12] MEDS ORDERED: MEROPENEM 1 GM in SODIUM CHL 0.9% 50ML MIN-BAG+ 50 ML IVPB SCH (11:00)
[2019-09-12] MEDS ORDERED: cefTRIAXone SODIUM 2 GM in SODIUM CHL 0.9% 100ML MINI-BAG 100 ML IVPB SCH (11:00)
[2019-09-12] MEDS ORDERED: SODIUM CHL 0.9% 100ML MINI-BAG 100 ML IVPB ONE (11:17)
[2019-09-12] MEDS: cefTRIAXone SODIUM 2 GM in SODIUM CHL 0.9% 100ML MINI-BAG 100 ML IVPB SCH (11:19)
--- NOTE | 2019-09-12 15:10 | PN ---
DATE: 09/12/19 SUPERVISING PHYSICIAN: Tom Davis M.D. SUBJECTIVE: The patient is doing well with her antibiotic therapy. She has had no diarrhea or constipation, nausea or vomiting. She has no other complaints. I did discuss with her the findings of the wound culture from the sternum that grew Proteus mirabilis and the fact that she will need to be on IV antibiotics for at least 4 weeks with Rocephin. She understands that plan of care. OBJECTIVE: VITAL SIGNS: Temperature 98.2, pulse 60, blood pressure 114/71, respirations 20, satting 98% on room air. GENERAL: The patient is resting comfortably. HEART: Regular rate and rhythm. ABDOMEN: Soft, non-tender. Positive bowel sounds. EXTREMITIES: Left foot still shows areas of ecchymosis to the dorsum and showing some improvement. No obvious erythema. No consolidations. Pulses are present, capillary refill brisk. NEUROLOGIC: She is alert and oriented times three. LABORATORY: Blood sugars are showing to be stable between 85 and 130. RADIOLOGY: No additional radiographic studies. MICROBIOLOGY: Blood cultures remain negative after 3 days. Wound culture of the sternum shows Proteus mirabilis which was sensitive to everything except Levaquin and ciprofloxacin. Please see that detailed report. ASSESSMENT: 1. Sternotomy infection with cultures showing Proteus mirabilis sensitive to all but fluoroquinolones with the patient being started on Rocephin for a course of 6 weeks. 2. Left foot cellulitis having initially failed to respond to outpatient treatment with 2 separate antibiotics showing good response to vancomycin. 3. Hypertension, stable. 4. Diabetes mellitus, type 2, showing to be stable. 5. History of coronary artery disease status post coronary artery bypass graft in May of 2019. 6. Sternal wound with a dehiscence with current wound therapy to include wound VAC with final cultures showing Proteus mirabilis requiring initiation of parenteral antibiotics as noted above. PLAN: Will continue with vancomycin today and add to that Rocephin 2 grams every 24 hours for a total course on the Rocephin to be 6 weeks pending further evaluation by Infectious Disease specialist, Dr. Agarwal, as an outpatient. She will need a PICC line placed on discharge. Anticipate discharging tomorrow to transition her to oral therapy for the treatment of the foot with doxycycline. Will continue to monitor blood sugars. I will repeat some basic labs in the morning prior to discharge which will include a CBC, BMP, ESR and C reactive protein. Once discharged she will need the PICC line placed and set up for outpatient therapy. Again include the Rocephin 2 grams every 24 hours for a total of 6 weeks treatment. She will need to followup with Dr. Agarwal in the outpatient setting in [place] as well as Dr. Bassett in continuation of treatment of the sternal wound. Until she can transition to outpatient management will continue to monitor and treat as needed. #[id number] [facility]
[2019-09-12] MEDS ORDERED: SODIUM CHLORIDE 0.9% 250ML 250 ML ONE (16:34)
[2019-09-12] MEDS ORDERED: VANCOMYCIN HCL INJ 500 MG VIAL ONE (16:34)
[2019-09-12] MEDS ORDERED: VANCOMYCIN HCL INJ 1,000 MG VIAL IVPB ONE (16:35)
[2019-09-12] MEDS: VANCOMYCIN HCL INJ 1,000 MG, VANCOMYCIN HCL INJ 250 MG in SODIUM CHLORIDE 0.9% 250ML 25... IVPB SCH (17:25)
[2019-09-12] MEDS: ENOXAPARIN SODIUM 40 MG/0.4 ML SYG SUBCU SCH (20:39)
[2019-09-12] MEDS: ATORVASTATIN 20 MG TAB PO SCH (20:39)
[2019-09-13] MEDS: PANTOPRAZOLE SODIUM TAB 40 MG PO SCH (06:36)
[2019-09-13] MEDS: INSULIN LISPRO 100 UNITS/ML PEN SUBCU SCH ×2 (07:18→11:38)
[2019-09-13] MEDS: metFORMIN HCL 500 MG TAB PO SCH (07:31)
[2019-09-13] MEDS: amLODIPine BESYLATE 5 MG TAB PO SCH (08:35)
[2019-09-13] MEDS: CITALOPRAM HBR 20 MG TAB PO SCH (08:35)
[2019-09-13] MEDS: ASPIRIN (ENTERIC COATED) 81 MG TAB PO SCH (08:35)
[2019-09-13] MEDS: hydroCHLOROthiazide 12.5 MG CAP PO SCH (08:35)
[2019-09-13] MEDS: CLOPIDOGREL 75 MG TAB PO SCH (08:35)
[2019-09-13] MEDS: METOPROLOL TARTRATE 25 MG TAB PO SCH (08:35)
[2019-09-13] MEDS: LISINOPRIL 10 MG TAB PO SCH (08:35)
[2019-09-13 09:23] VITALS: O2SAT 95
[2019-09-13] MEDS ORDERED: SODIUM CHL 0.9% 100ML MINI-BAG 100 ML IVPB ONE (10:14)
[2019-09-13] MEDS: cefTRIAXone SODIUM 2 GM in SODIUM CHL 0.9% 100ML MINI-BAG 100 ML IVPB SCH (10:17)
[2019-09-13] MEDS ORDERED: SODIUM CHLORIDE 0.9% 250ML 250 ML ONE (11:56)
[2019-09-13] MEDS ORDERED: VANCOMYCIN HCL INJ 500 MG VIAL ONE (11:56)
[2019-09-13] MEDS ORDERED: VANCOMYCIN HCL INJ 1,000 MG VIAL IVPB ONE (11:57)
[2019-09-13] MEDS ORDERED: VANCOMYCIN HCL INJ 1,000 MG, VANCOMYCIN HCL INJ 250 MG in SODIUM CHLORIDE 0.9% 250ML 25... IVPB ONE (12:00)
[2019-09-13] MEDS ORDERED: FLUCONAZOLE 150 MG TAB PO ONE (12:20)
[2019-09-13 12:23] VITALS: BP 118/71; TEMP 98.1
--- NOTE | 2019-09-13 14:10 | DS ---
SUPERVISING PHYSICIAN: Hung Hilliard MD ADMISSION DIAGNOSIS: 1. Left foot cellulitis which has failed outpatient therapy. 2. Hypertension. 3. Diabetes mellitus, type 2. 4. History of coronary artery disease status post coronary artery bypass graft in May of 2019. 5. History of sternal wound dehiscence with application of a wound VAC. DISCHARGE DIAGNOSIS: 1. Sternotomy infection with cultures showing Proteus mirabilis sensitive to all but fluoroquinolones with the patient being started on Rocephin for a course of 6 weeks. 2. Left foot cellulitis having failed to respond to outpatient treatment with two separate antibiotics, showing good response to vancomycin, now transitioned to doxycycline. 3. Hypertension, stable. 4. Diabetes mellitus, type 2, stable. 5. History of coronary artery disease status post coronary artery bypass graft in May of 2019. 6. Sternal wound with a dehiscence with current wound therapy to include wound VAC with final cultures showing Proteus mirabilis requiring initiation of parenteral antibiotics as noted above. REASON FOR HOSPITALIZATION: This is an 79-year-old female who came in the Emergency Room with left foot swelling and erythema. She went to see her primary care physician who noted that she had some increased swelling and redness to the foot. Apparently she had a coronary artery bypass graft at [facility] several months ago. Since that time, she has had intermittent swelling of the foot, however, the swelling did not have discoloration until August 22. She ended up going to [facility] and was sent to the Emergency Room at [facility]. She was placed in the CDU there where her surgeon, Dr. Bassett, was contacted. She ended up having a Doppler which did not show any blood clots, but did incidentally find a left inguinal pseudoaneurysm. She was placed on antibiotics by mouth which included Bactrim. She finished those antibiotics a couple of days ago and was seen by her primary care physician who noted that the redness and swelling really has not gotten any better. Additionally, she has had a dehiscence of her sternal wound that required a wound VAC. On examination today, the patient is alert and oriented. Her labs are unremarkable. She does not complain of any significant pain at this time. LABORATORY: White count on admission was 7,800 and at discharge was 5,700. On discharge, hemoglobin was 11.4, hematocrit 34.6, platelet count 120,000. Differential was without a left shift. ESR on admission was 27 and at discharge was 23. Coagulation studies were within normal limits on admission. Electrolytes on discharge showed sodium 134, potassium 4.2. Blood sugars were stable through hospital course, ranging between 79 to 132. Uric acid was normal at 6.1. Liver functions were all within normal limits. Calcium 9.2. C- reactive protein was 1 on admission and at discharge was 0.7. Toxicology screen showed vancomycin trough on 09/11/19 of 9.7. MICROBIOLOGY: Blood cultures remained negative after 4 days. Her sternotomy wound crew out a proteus mirabilis that was near bansal sensitive showing sensitivity to Rocephin. Please see that culture result for full details. RADIOLOGY: She has a lower extremity CT on admission and per radiologic interpretation showed soft tissue swelling without any acute bony abnormalities. HOSPITAL COURSE: Ms. Berman was admitted on 09/08/19 for cellulitis of the left lower extremity and was started on vancomycin. She did show good response to the treatment course and it was felt she had responded well enough to finish that treatment as an outpatient with doxycycline. She had wound management for the sternotomy wound with home health. Culture was obtained and it did grow a proteus mirabilis as noted above. She had no fever. She was showing no other symptoms or complications, but after talking to infectious disease specialist, Dr. Agarwal, the patient was started on Rocephin 2 grams q.24h. for a total course of 6 weeks to continue as an outpatient. PHYSICAL ASSESSMENT ON DISCHARGE: VITAL SIGNS: Afebrile. Temperature 98.1. Pulse 52. Blood pressure 118/71. Respirations 18. Saturation 95% on room air. GENERAL: The patient appears to be in no acute distress. CHEST: Clear to auscultation. HEART: Regular rate and rhythm. Wound VAC in place over the lower distal portion of the sternum with no obvious drainage. ABDOMEN: Soft, nontender, positive bowel sounds. EXTREMITIES: Left foot, dorsal aspect, had a continued area of mild ecchymosis, no obvious signs of erythema. The foot was not warm to touch and was showing significant improvement from admission. NEUROLOGIC: Alert and oriented times 3. PLAN: Ms. Berman was discharged on 09/13/19 with instructions to followup with Dr. Agarwal and Dr. Lawler. She was to start her doxycycline the Friday after discharge. She was to be set up with a PICC line placement for initiation of antibiotic therapy with Rocephin 2 grams q.24h. for 6 weeks. Initial arrangements were to be given at home through home health. If not, she will have it through the infusion clinic at [facility]. She is to continue with wound management as per previous orders with home health. She will need followup with Dr. Agarwal she she finishes her complete course of antibiotics to further assist with wound and make decision on treatment. She was told to return to the hospital for any worsening of her condition or call Dr. Lawler's office for any other questions. Diet on discharge was diabetic tolerated as tolerated. Activity as tolerated. MEDICATIONS ON DISCHARGE: 1. Doxycycline 100 mg b.i.d. for 7 days, no refills. 2. Rocephin 2 grams q.24h. for 6 weeks to be arranged as an outpatient through the infusion clinic. All other medications were continued as is except for the previous antibiotics she was on that included Bactrim and Keflex. Her home medications included: 1. Citalopram 20 mg daily. 2. Tylenol 325 mg p.r.n. 3. Hydrochlorothiazide 12.5 mg daily. 4. Atorvastatin 40 mg daily. 5. Amlodipine 5 mg daily. 6. Metoprolol 25 mg b.i.d. 7. Plavix 75 mg daily. 8. Lisinopril 20 mg daily. 9. Aspirin low dose 81 mg. 10. Metformin 500 mg daily. DISPOSITION: The patient was discharged to home health care. CONDITION ON DISCHARGE: Stable and improved. #[id number] [facility]
== END 2019-09-13 14:45 | disposition home health service (06) | DRG 603 ==
LOC: ER 17:36 → OBSVTOIN 22:09 → MS 22:09
PROVIDERS: ADMIT Nurse Practitioner; ATTEND Nurse Practitioner Family
DX: L03.116 Cellulitis of left lower limb (principal); T81.41XA Infection following a procedure, superficial incisional surgical site, initial encounter; Z16.23 Resistance to quinolones and fluoroquinolones; E11.9 Type 2 diabetes mellitus without complications; I25.10 Atherosclerotic heart disease of native coronary artery without angina pectoris; B96.4 Proteus (mirabilis) (morganii) as the cause of diseases classified elsewhere; I11.0 Hypertensive heart disease with heart failure; I50.9 Heart failure, unspecified; H91.90 Unspecified hearing loss, unspecified ear; Z95.1 Presence of aortocoronary bypass graft; Z87.440 Personal history of urinary (tract) infections; Z79.82 Long term (current) use of aspirin; Z79.84 Long term (current) use of oral hypoglycemic drugs; Z79.02 Long term (current) use of antithrombotics/antiplatelets; Z82.49 Family history of ischemic heart disease and other diseases of the circulatory system

== ENCOUNTER 2019-10-20 18:43 | Emergency (ER) | payer MEDICARE, OTHER ==
[2019-10-20 18:55] VITALS: TEMP 96.3
--- NOTE | 2019-10-20 19:26 | CT ---
EXAM: Head CLINICAL INDICATION: Patient fell COMPARISON: There is no previous study for comparison. TECHNIQUE: CT scan was done using contiguous axial 5 mm sections through the brain. This exam was performed according to our departmental dose-optimization program, which includes automated exposure control, adjustment of the mA and/or kV according to patient size and/or use of iterative reconstruction technique. FINDINGS: There is no midline shift, mass effect, or extraaxial fluid collection. There is no evidence of acute intracranial hemorrhage, mass lesion, or cerebral edema. Mild diffuse atrophy and nonspecific chronic ischemic changes are noted. Bone window images reveal no evidence of a skull fracture. IMPRESSION: No evidence of an acute intracranial process. Electronically signed by: Remington Nieto MD 10/20/2019 7:25 PM [employer]
--- NOTE | 2019-10-20 21:13 | ED.PDOC ---
History of Present Illness - General Chief Complaint: Trauma Stated Complaint: fall, nausea and vomiting, confusion Time Seen by Provider: 10/20/19 18:55 Source: patient, RN notes reviewed, Vital Signs reviewed, family, RN/MD Exam Limitations: no limitations - History of Present Illness Initial Comments: Patient presents after fall today with no loss of consciousness with complaints of mild headache and confusion. Patient denies any blurry vision, dizziness, vertigo, chest pain, shortness of breath, diarrhea. Timing/Duration: 1-3 hours Severity: moderate Improving Factors: nothing Worsening Factors: nothing Associated Symptoms: chest pain, cough, diaphoresis, fever/chills, loss of appetite, nausea/vomiting, seizure, shortness of breath, syncope Allergies/Adverse Reactions: Allergies NO KNOWN ALLERGY Allergy (Verified 09/08/19 20:05) Home Medications: Ambulatory Orders Lisinopril 20 mg PO DAILY 09/20/17 Aspirin [Aspirin Adult Low Dose] 81 mg PO DAILY 05/18/19 metFORMIN HCL [Glucophage] 500 mg PO DAILY 05/18/19 Acetaminophen [Tylenol] 325 mg PO PRN PRN 09/08/19 Amlodipine Besylate 5 mg PO DAILY 09/08/19 Atorvastatin Calcium 40 mg PO DAILY 09/08/19 Citalopram Hydrobromide [Citalopram] 20 mg PO DAILY 09/08/19 Clopidogrel Bisulfate 75 mg PO DAILY 09/08/19 Metoprolol Tartrate 25 mg PO BID 09/08/19 Review of Systems - Review of Systems Constitutional: States: no symptoms reported EENTM: States: no symptoms reported Respiratory: States: no symptoms reported Cardiology: States: no symptoms reported Gastrointestinal/Abdominal: States: nausea, vomiting - times one Genitourinary: States: no symptoms reported Musculoskeletal: States: no symptoms reported Skin: States: no symptoms reported Neurological: States: other - confusion Endocrine: States: no symptoms reported Hematologic/Lymphatic: States: no symptoms reported All other Systems: Reviewed and Negative Past Medical History (General) - Patient Medical History Hx Seizures: No Hx Stroke: No Hx Dementia: No Hx Asthma: No Hx of COPD: No Hx Cardiac Disorders: Yes - CAD S/P CABG Hx Congestive Heart Failure: No Hx Pacemaker: No Hx Hypertension: Yes Hx Thyroid Disease: No Hx Diabetes: Yes Hx Gastroesophageal Reflux: No Hx Renal Disease: No Hx Cancer: No Hx of HIV: No Hx Hepatitis C: No Hx MRSA: No Surgical History: coronary bypass surgery - Vaccination History Hx Tetanus, Diphtheria Vaccination: No Hx Influenza Vaccination: Yes Hx Pneumococcal Vaccination: Yes - Social History Hx Tobacco Use: No Hx Chewing Tobacco Use: No Hx Alcohol Use: No Hx Substance Use: No Hx Substance Use Treatment: No Hx Depression: No Hx Physical Abuse: No Hx Emotional Abuse: No Hx Suspected Abuse: No - Female History Patient : No Family Medical History - Family History Mother Living Status: Hx Family Congestive Heart Failure: Yes - 89 Hx Family Hypertension: Yes - multiple family members Hx Family Diabetes: Yes - dad,brother Father Living Status: Age at (years of age): 56 Cause of : MT Physical Exam - Physical Exam General Appearance: Alert, Anxious, Well Developed, Well Groomed, Well Hydrated, Well Nourished Eye Exam: bilateral normal Ears, Nose, Throat: hearing grossly normal, normal ENT inspection, normal pharynx Neck: non-tender, full range of motion, supple, normal inspection Respiratory: chest non-tender, lungs clear, normal breath sounds, no respiratory distress, no accessory muscle use Cardiovascular/Chest: normal peripheral pulses, regular rate, rhythm, no edema, no gallop, no JVD, no murmur Gastrointestinal/Abdominal: normal bowel sounds, non tender, soft, no o rganomegaly Back Exam: normal inspection, no vertebral tenderness Extremity: normal range of motion, non-tender, normal inspection, no pedal edema, no calf tenderness Neurologic: hub lead II-XII nml as tested, no motor/sensory deficits, alert, normal mood/affect, oriented x 3, other - per family patient was slightly disoriented. Skin Exam: normal color, warm/dry Lymphatic: no adenopathy Progress - Progress Progress: 10/20/19 22:[address] is neg. Patient has improved while here. Plan discharge home and follow up in a few days. I discussed this plan of with the family and the patient and they voice understanding and agreement. Isac Costa M.D. #[id number] - Results/Orders Results/Orders: 10/20/19 20:57 URINALYSIS Stat Laboratory Results - last 24 hr 10/20/19 10/20/19 10/20/19 19:20 19:20 19:20 WBC 4.5 L RBC 3.57 L Hgb 10.3 L Hct 30.7 L MCV 86.1 MCH 29.0 MCHC 33.7 RDW 16.5 H Plt Count 148 MPV 7.4 Absolute Neuts (auto) 2.70 Absolute Lymphs (auto) 1.20 Absolute Monos (auto) 0.50 Absolute Eos (auto) 0.10 Absolute Basos (auto) 0.00 Neutrophils % 59.8 Lymphocytes % 26.5 Monocytes % 10.4 H Eosinophils % 2.2 Basophils % 1.1 Sodium 137 Potassium 3.5 L Chloride 100 L Carbon Dioxide 24 Anion Gap 16.5 BUN 18 Creatinine 0.85 BUN/Creatinine Ratio 21.2 H Random Glucose 142 H Serum Osmolality 278.1 Calcium 8.8 Total Bilirubin 0.6 AST 17 ALT 12 Alkaline Phosphatase 46 Troponin I < 0.02 Serum Total Protein 6.6 Albumin 3.8 Globulin 2.8 Albumin/Globulin Ratio 1.4 Lipase 14 L EXAM: XR Left Knee, 3 Views CLINICAL HISTORY: The patient is 79 years old and is Female; pain s/p fall TECHNIQUE: Three views of the left knee. COMPARISON: No relevant prior studies available. FINDINGS: BONES/JOINTS: Unremarkable. No acute fracture. No dislocation. SOFT TISSUES: Unremarkable. VASCULATURE: Atherosclerosis of the vasculature is present. IMPRESSION: No acute findings in the left knee. Electronically signed by: Chela Menezes MD 10/20/2019 10:03 PM XAM: Head CLINICAL INDICATION: Patient fell COMPARISON: There is no previous study for comparison. TECHNIQUE: CT scan was done using contiguous axial 5 mm sections through the brain. This exam was performed according to our departmental dose-optimization program, which includes automated exposure control, adjustment of the mA and/or kV according to patient size and/or use of iterative reconstruction technique. FINDINGS: There is no midline shift, mass effect, or extraaxial fluid collection. There is no evidence of acute intracranial hemorrhage, mass lesion, or cerebral edema. Mild diffuse atrophy and nonspecific chronic ischemic changes are noted. Bone window images reveal no evidence of a skull fracture. IMPRESSION: No evidence of an acute intracranial process. Electronically signed by: Remington Nieto MD 10/20/2019 7:25 PM Departure - Departure Clinical Impression: Confusion and disorientation Fall Qualifiers: Encounter type: initial encounter Qualified Code(s): W19.XXXA - Unspecified f all, initial encounter Knee pain Qualifiers: Chronicity: acute Laterality: left Qualified Code(s): M25.562 - Pain in left knee Time of Disposition: 22:22 Disposition: Discharge to Home or Self Care Condition: Good Departure Forms: ED Discharge - Pt. Copy, Patient Portal Self Enrollment Instructions: DI for Trauma, Delirium (Confusion), Knee Pain (DC) Referrals: QAMAR LINTON MD [Primary Care Provider] - 1-2 Days Home Medications: Ambulatory Orders Lisinopril 20 mg PO DAILY 09/20/17 Aspirin [Aspirin Adult Low Dose] 81 mg PO DAILY 05/18/19 metFORMIN HCL [Glucophage] 500 mg PO DAILY 05/18/19 Acetaminophen [Tylenol] 325 mg PO PRN PRN 09/08/19 Amlodipine Besylate 5 mg PO DAILY 09/08/19 Atorvastatin Calcium 40 mg PO DAILY 09/08/19 Citalopram Hydrobromide [Citalopram] 20 mg PO DAILY 09/08/19 Clopidogrel Bisulfate 75 mg PO DAILY 09/08/19 Metoprolol Tartrate 25 mg PO BID 09/08/19
--- NOTE | 2019-10-20 22:05 | RAD ---
EXAM: XR Left Knee, 3 Views CLINICAL HISTORY: The patient is 79 years old and is Female; pain s/p fall TECHNIQUE: Three views of the left knee. COMPARISON: No relevant prior studies available. FINDINGS: BONES/JOINTS: Unremarkable. No acute fracture. No dislocation. SOFT TISSUES: Unremarkable. VASCULATURE: Atherosclerosis of the vasculature is present. IMPRESSION: No acute findings in the left knee. Electronically signed by: Chela Menezes MD 10/20/2019 10:03 PM [facility]
[2019-10-20 22:07] VITALS: BP 117/55; O2SAT 93
== END 2019-10-20 22:27 | disposition home or self-care (01) ==
LOC: ER 18:43
DX: R41.0 Disorientation, unspecified (principal); M25.562 Pain in left knee; R51 Headache; R11.2 Nausea with vomiting, unspecified; I25.10 Atherosclerotic heart disease of native coronary artery without angina pectoris; I10 Essential (primary) hypertension; E11.9 Type 2 diabetes mellitus without complications; Z95.1 Presence of aortocoronary bypass graft; Z79.899 Other long term (current) drug therapy; Z79.84 Long term (current) use of oral hypoglycemic drugs; Z79.82 Long term (current) use of aspirin

== ENCOUNTER → 2019-11-01 | Outpatient (CLI) | payer MEDICARE, OTHER ==
--- NOTE | 2019-11-01 16:18 | CT ---
EXAM DESCRIPTION: Lower Extremity CLINICAL HISTORY: CONTUSION OF LEFT LOWER LEG COMPARISON: X-ray October 22, 2019 TECHNIQUE: Noncontrast transaxial CT images of the left knee are obtained with coronal and sagittal reconstructed images. This exam was performed according to our departmental dose-optimization program, which includes automated exposure control, adjustment of the mA and/or kV according to patient size and/or use of iterative reconstruction technique . FINDINGS: Diffuse osteopenia the osseous structures. No acute fracture, focal bone destruction, or joint dislocation. Moderate to severe narrowing of the medial tibiofemoral compartment is seen with mild sclerotic changes to the adjacent articular surfaces. Mild osteophytes of the posterior patella. ACL and PCL appear intact. The menisci are not well evaluated. No significant suprapatellar joint effusion. Mild 5 mm lateral patellar subluxation and narrowing of the lateral patellar femoral compartment. Subcortical cyst of the patellar apex likely represents osteoarthritic changes. Small Genao's cyst is seen. Increased attenuation structure measures 3.8 x 2.8 x 4.3 cm in the distal right semimembranosus. Similar increased attenuation structure in the more medial aspect of the more proximal semimembranosus measures 5.2 cm AP by 1.7 cm transverse by 5.2 cm craniocaudal. Mild diffuse fat stranding and fatty infiltration of the semimembranosus is seen. Mild subcutaneous fat stranding posterior to the distal thigh with 16 soft tissue fat stranding around the proximal calf. Mild scattered calcified plaque of the arterial vasculature. 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 Focal areas of increased attenuation mainly involving the left mid to distal semimembranosus likely represent areas of hemorrhage possibly related to muscle tear or injury. Consider further evaluation with MRI imaging if the patient has no contraindications. Mild diffuse soft tissue swelling and edema of the left knee. Electronically signed by: Lennox Jimenez MD 11/01/2019 4:17 PM NEUROSURGICAL NURSE
== END ==
LOC: CT 15:34
PROVIDERS: ATTEND Family Medicine
DX: S80.12XA Contusion of left lower leg, initial encounter (principal); M17.12 Unilateral primary osteoarthritis, left knee; M79.9 Soft tissue disorder, unspecified

== ENCOUNTER → 2019-11-08 | Outpatient (CLI) | payer MEDICARE, OTHER ==
--- NOTE | 2019-11-08 13:54 | MRI ---
EXAM DESCRIPTION: Lower Extremity,Left CLINICAL HISTORY: 79 years Female, CONTUSION OF LEFT LOWER LEG, INITIAL ENCOUNTER COMPARISON: CT abdomen November 01, 2019. TECHNIQUE: Noncontrast multiplanar multisequence magnetic resonance imaging of the left thigh was performed using large field of view technique. FINDINGS: Serpiginous multilobulated fluid collection is seen within the muscle body of the left semimembranosus. Fluid collection measures up to 12.5 cm cephalocaudal dimension, up to 5 cm AP dimension and up to 4.5 cm mediolateral dimension. Fluid collection is mostly hyperintense on T1 with pockets of T1 hypointensity. Fluid collection is mainly hyperintense on fluid weighted sequences. Generalized edema is present throughout the posterior compartment of the. Myositis noted throughout this semimembranosus. Edema/myositis also noted within the adjacent semitendinosus and biceps femoris. Tiny less than 2 mL fluid collection/hematoma mid substance of the anterior semitendinosis. Small less than 2 mL intramuscular hematoma of the biceps femoris. No high-grade tendon tear. No bone contusion, fracture or aggressive bone lesion. Normal vascular flow voids are present. Patella femoral chondrosis is present. Small knee joint effusion. IMPRESSION: Large intramuscular hematoma of the right semimembranous and 12.5 x 5.0 x 4.5 cm. Smaller intramuscular hematomas of the semitendinosus and biceps femoris. No high-grade tendon tears. Myositis likely contusion related semimembranosus, semitendinosus and biceps femoris. Electronically signed by: Bob Wiggins MD 11/08/2019 1:52 PM [employer]
== END ==
LOC: MRI 09:48
PROVIDERS: ATTEND Family Medicine
DX: S80.12XA Contusion of left lower leg, initial encounter (principal)

== ENCOUNTER → 2020-04-11 | Outpatient (CLI) | payer MEDICARE, OTHER | LOC: GMAE 10:46 | PROVIDERS: ATTEND Family Medicine | DX: I10 Essential (primary) hypertension (principal); E11.42 Type 2 diabetes mellitus with diabetic polyneuropathy; E78.5 Hyperlipidemia, unspecified ==

== ENCOUNTER → 2021-01-29 | Outpatient (CLI) | payer MEDICARE, OTHER ==
--- NOTE | 2021-01-30 12:57 | US ---
EXAM DESCRIPTION: 3D Diagnostic, Bilateral (accession [id number]), Breast,Left (accession [id number]): Ultrasound CLINICAL HISTORY: 80 yearsFemaleBREAST PAIN mass with pain medial undersurface of left breast.. No family history of breast cancer. Menarche age unknown. Childbirth age 16. HRT 5 or more years ago. Lifetime risk of developing breast cancer (Tyrer-Cuzick model)(%): 1.7. COMPARISON: Bilateral screening digital breast tomosynthesis March 2019. TECHNIQUE: Bilateral LM, CC, and MLO projection full-field images, digital tomosynthesis technique. Bilateral 2-D digital full-field images: LM, CC, and MLO projections. CAD available for 2-D images.. Transcutaneous scanning of the left breast utilizing dixon-scale and Doppler modes. Scanning performed by the emergency spill response technician ; observation by Dr. Esposito FINDINGS: The breast parenchymal density pattern is: Almost entirely fatty. Intramammary lymph nodes. Triangular marker overlying a skin mole in the region of interest inferior medial undersurface of the posterior breast. Stable since the prior study. No mammographic abnormalities. No suspicious microcalcifications. Axillary nodes. Solitary microcalcifications. Bilateral axillary accessory breast tissue. No skin thickening or nipple retraction No new focal, stellate mass or density, focal asymmetry , and no suspicious microcalcifications bilaterally. Ultrasound: Scanning region of interest posterior inferior medial breast abutting the chest wall. Scanning over the skin mole which is almost 2-dimensional. Echogenic anterior and posterior borders with no definite shadowing. Posterior to the underlying breast is fatty replacement. No dominant solid mass, no distinct cysts, no fluid collection, and no large calcification. IMPRESSION: Benign exam. BIRAD CATEGORY: 2 BENIGN FINDINGS. RECOMMENDATIONS: FOLLOW UP: digital bilateral mammographic screening, one year interval from January 2021. Written communication explaining the IMPRESSION and follow-up, will be mailed to the patient and referring health care provider. The FINDINGS and the FOLLOW-UP plan were reviewed in person with the patient after the examination. According to the [employer], yearly mammograms are recommended starting at age 40 and continuing as long as a woman is in good health. Any breast change noted on a breast self-exam should be reported promptly to the patient's healthcare provider. Breast MRI is recommended for women with an approximately 20-25% or greater lifetime risk of breast cancer, including women with a strong family history of breast or ovarian cancer and women who have been treated for Hodgkin's disease. A negative mammographic report should not delay tissue diagnosis in patients with significant clinical history or physical findings. Extremely dense breast tissue limits the sensitivity of digital mammography. Electronically signed by: Dereck Esposito MD 01/30/2021 12:56 PM [facility]
== END ==
LOC: MAMMO 10:47
PROVIDERS: ATTEND Family Medicine
DX: N64.4 Mastodynia (principal)
CPT/HCPCS: 76641; 77066; G0279